=== PATIENT | male | born 1950 | race Caucasian/White ===

== ENCOUNTER 2020-10-08 10:17 | Day surgery (SDC) | payer MEDICARE, OTHER ==
[~2020-10-08] VITALS: Ht 177.8 cm; Wt 66.9 kg
[~2020-10-08 10:17] MED LIST: OMEP-110 PO; OXYC1TAB14 PO
[2020-10-08] MEDS ORDERED: MIDAZOLAM 1 MG/ML, 2ML ONE (10:46)
[2020-10-08] MEDS ORDERED: FENTANYL PF 100 MCG/2ML ONE ×3 (10:47→14:07)
[2020-10-08] MEDS ORDERED: MULTI VITAMIN (10:54)
[2020-10-08] MEDS ORDERED: CALCIUM PO (10:54)
[2020-10-08] MEDS ORDERED: CHLORHEXIDINE 15 ML UDC ONE (10:57)
[2020-10-08] MEDS ORDERED: CHLORHEXIDINE 15 ML UDC PO ONE (11:00)
[2020-10-08] MEDS ORDERED: LACTATED RINGERS 1,000 ML IV SCH (11:00)
[2020-10-08 11:12] VITALS: BP 124/79
[2020-10-08] MEDS ORDERED: PROPOFOL 10 MG/ML, 20ML ONE (11:40)
[2020-10-08] MEDS ORDERED: CEFAZOLIN 1,000 MG ONE (11:40)
[2020-10-08] MEDS ORDERED: DEXAMETHASONE 4 MG/ML, 1ML ONE (11:40)
[2020-10-08] MEDS ORDERED: SUCCINYLCHOLINE 20 MG/ML, 10ML ONE (11:40)
[2020-10-08] MEDS ORDERED: ONDANSETRON 2MG/ML, 2ML ONE (11:40)
[2020-10-08] MEDS ORDERED: ROCURONIUM 10MG/ML,5ML ONE (11:40)
[2020-10-08] MEDS ORDERED: NEOSTIGMINE 1 MG/ML, 10ML ONE (11:40)
[2020-10-08] MEDS ORDERED: GLYCOPYRROLATE 0.2MG/1ML, 5ML ONE (11:40)
[2020-10-08] MEDS ORDERED: OMNIPAQUE 350 MG/ML, 50 ML BOTTLE ONE (12:01)
[2020-10-08] MEDS ORDERED: ONDANSETRON 2MG/ML, 2ML IVPush PRN (13:00)
[2020-10-08] MEDS ORDERED: MEPERIDINE/PF 25MG/0.5ML IVPush PRN (13:00)
[2020-10-08] MEDS ORDERED: OXYcodone 5 MG/5 ML ORAL.SOL UDC PO PRN (13:00)
[2020-10-08] MEDS ORDERED: PROMETHAZINE 25 MG/ML, 1ML IVPush PRN (13:00)
[2020-10-08] MEDS ORDERED: HYDROcodone/APAP 7.5-325MG/15ML UDC PO PRN (13:00)
[2020-10-08] MEDS ORDERED: ACETAMINOPHEN 325 MG TABLET PO PRN (13:00)
[2020-10-08] MEDS ORDERED: OPIUM/BELLADONNA SUPP.RECT 16.2-30 MG ONE (13:35)
[2020-10-08] MEDS: FENTANYL PF 100 MCG/2ML IV PRN ×4 (14:01→14:25)
[2020-10-08] MEDS ORDERED: ACETAMINOPHEN 650 MG/20.3 ML UDC ONE (14:07)
[2020-10-08] MEDS ORDERED: OXYcodone 5 MG/5 ML ORAL.SOL UDC ONE (14:07)
[2020-10-08] MEDS ORDERED: HYDROmorphone 1 MG/ML, 1ML INJ ONE (14:26)
[2020-10-08] MEDS: HYDROmorphone 1 MG/ML, 1ML INJ IVPush PRN ×2 (14:30→14:40)
== END 2020-10-08 15:16 | disposition home or self-care (01) ==
LOC: OUT 10:17
PROVIDERS: ATTEND Urology
DX: N28.9 Disorder of kidney and ureter, unspecified (principal); N20.0 Calculus of kidney; N40.0 Benign prostatic hyperplasia without lower urinary tract symptoms; Z88.1 Allergy status to other antibiotic agents; Z79.899 Other long term (current) drug therapy; Z72.89 Other problems related to lifestyle; Z87.891 Personal history of nicotine dependence; Z20.822 Contact with and (suspected) exposure to COVID-19; Z98.890 Other specified postprocedural states
CPT/HCPCS: 52204; 52332; 74420; 87635; 88305; 93005; C1758; C1769; C2617; J0330; J0690; J1100; J1170; J2250; J2405; J2704; J2710; J3010; J7120; Q9967